=== PATIENT | female | born 1950 | race Caucasian/White ===

== ENCOUNTER 2018-10-05 17:31 | Inpatient (IN) ==
[2018-10-06] MEDS ORDERED: *HR* Dextrose 50 % in Water (Syg) 50 ML SYRINGE IVP PRN (18:03)
[2018-10-06] MEDS ORDERED: D5% in Water 1,000 ML IVC PRN (18:03)
[2018-10-06] MEDS ORDERED: Dextrose Gel 15 GM/37.5 ML TUBE PO PRN ×2 (18:03)
[2018-10-06] MEDS ORDERED: Mag Hydrox/Al Hydrox/Simeth 30 ML UDC PO PRN (18:03)
[2018-10-06] MEDS ORDERED: Dextrose 4 GM Chewable Tablets PO PRN ×2 (18:03)
[2018-10-06] MEDS ORDERED: Acetaminophen 325 MG TABLET PO PRN (18:03)
[2018-10-06] MEDS ORDERED: Ondansetron ODT 4 MG TAB.RAPDIS SL PRN (18:08)
[2018-10-06] MEDS: *HR* OxyCODONE Immed Rel 5 MG TABLET PO PRN ×2 (18:57→22:35)
[2018-10-06] MEDS: Insulin LISPRO 300 UNITS/3 ML VIAL SQ SCH (22:06)
[2018-10-06] MEDS: Apixaban 5 MG TABLET PO SCH (22:32)
[2018-10-06] MEDS: Gabapentin 300 MG CAPSULE PO SCH (22:33)
[2018-10-06] MEDS: Sennosides/Docusate Sodium TABLET PO SCH (22:34)
[2018-10-07] MEDS: *HR* OxyCODONE Immed Rel 5 MG TABLET PO PRN ×3 (03:40→22:10)
[2018-10-07 05:36] LABS: Basophils % 0.5 %; Eosinophils # 0.3 K/mcL (0.0-0.6); Eosinophils % 3.5 %; Hematocrit 33.8 % (35.3-44.9); Hemoglobin 11.1 g/dL (11.5-15.4); Immature Granulocytes % 0.3 % (0-4); Lymphocytes % 12.7 %; Mean Corpuscular HGB Conc 32.8 g/dL (31.6-35.5); Mean Corpuscular Hemoglobin 30.2 pg (28.0-33.3); Mean Corpuscular Volume 91.8 fL (83.0-100.0); Monocytes # 0.8 K/mcL (0.0-1.3); Monocytes % 10.3 %; Neutrophils # 5.8 K/mcL (1.6-8.9); Platelet Count 230 K/mcL (140-400); Red Blood Count 3.68 M/mcL (3.82-4.97); Red Cell Distribution Width 13.2 % (11.5-14.5); Segmented Neutrophils % 72.7 %
[2018-10-07 06:00] LABS: Alanine Aminotransferase 17 Units/L (7-52); Albumin 3.4 g/dL (3.5-5.7); Albumin/Globulin Ratio 1.1 (1.1-2.2); Alkaline Phosphatase 85 Units/L (34-104); Aspartate Amino Transferase 28 Units/L (13-39); BUN/Creatinine Ratio 27 (6-26); Bilirubin,Total 0.7 mg/dL (0.3-1.0); Blood Urea Nitrogen 15 mg/dL (8-23); Carbon Dioxide 27 mEq/L (23-29); Chloride 104 mEq/L (98-107); Globulin 3.2 g/dL (2.4-3.5); Glucose 140 mg/dL (70-105); Osmolality,Calculated 287 (280-300); Potassium 3.6 mEq/L (3.5-5.1); Sodium 137 mEq/L (136-145); Total Protein 6.6 g/dL (6.4-8.9); eGFR For Non-African Americans > 60 (> 60)
[2018-10-07] MEDS ORDERED: tiZANidine 4 MG TABLET PO ONE (09:13)
[2018-10-07] MEDS: Insulin LISPRO 300 UNITS/3 ML VIAL SQ SCH ×4 (09:17→20:52)
[2018-10-07] MEDS: Apixaban 5 MG TABLET PO SCH ×2 (09:20→20:12)
[2018-10-07] MEDS: Gabapentin 300 MG CAPSULE PO SCH ×3 (09:20→20:12)
[2018-10-07] MEDS: Insulin DETEMIR 100 UNIT/ML X5UNITS SQ SCH (09:20)
[2018-10-07] MEDS: Sennosides/Docusate Sodium TABLET PO SCH ×2 (09:21→20:11)
[2018-10-07] MEDS: tiZANidine 4 MG TABLET PO PRN ×2 (10:01→16:49)
--- NOTE | 2018-10-07 10:49 | Internal Med History&Physical ---
Addendum entered and electronically signed by Umesh Mar MD 10/07/18 11:40: I have personally performed a face to face evaluation on this patient. I have r eviewed and agree with the care plan. History and Exam by me shows: Patient is a 67-year-old female who has had multiple vascular procedures, 45, until yesterday when she had a left [id number] amputation. She is having significant pain and feels this is muscle spasm. She does not like to have the extremity stump touched. She notes no breathing problems or chest pains, postoperatively. She states it is been 3 or so days since her last bowel movement. Otherwise, she just has pain. Past medical history was reviewed with her, as listed below. She had a remote heart attack but no recent chest pain or breathing problems. She smoked approximately 70-80 pack years but stopped 07/15/2018. She lives alone and has a daughter that lives about 10 minutes away. She wears dentures but does not have with her. Patient has no complaint of chest discomfort, dyspnea, orthopnea, breathing problems, palpitations, nausea or vomiting, constipation or diarrhea, other changes in bowel habits, heartburn, difficulty with urination, kidney problems or kidney stones, fevers chills or sweats, rash or itching, seizures, headache or lightheadedness, heat or cold intolerance, blood problems or anemia, or other new complaints, except as mentioned above. Review of systems is otherwise negative. Examination: (Except as mentioned above): General: In no apparent distress, alert and oriented 3. She has pain and shaking, throughout the exam. Head: Atraumatic and normocephalic. Eyes: Extraocular muscles are intact, pupils equal round and reactive to light and accommodation. Sclerae anicteric. Ears: External ears are normal to inspection and hearing is grossly normal. Nose: Patent without lesion noted. Mouth: No intraoral lesions seen. She is edentulous Neck: Supple with trachea midline. There is no thyromegaly or adenopathy and carotids are 2+ without bruit heard. Respiratory: No use of accessory muscles. Lungs are clear throughout. Normal airflow. Cardiovascular: Regular rate and rhythm without murmur appreciated. Abdomen: Bowel sounds are normal. No hepatosplenomegaly masses or tenderness. Obese and therefore difficult to palpate deeply. Extremities: No cyanosis clubbing or edema. She is status post AKA on the left and this is with an intact wound. There is pronounced tenderness and she is obviously in pain. Neurological: A and O 3. Cranial nerves II through XII are intact. No focal deficits and no abnormal movements or postures. Skin: Warm and non-diaphoretic with no lesions noted. Breasts, pelvic and rectal: Not examined. Will try to optimize narcotics and avoid as possible, wean when possible. Muscle relaxants have been begun and will be increased as needed. Original Note: Date of Encounter: 10/07/18 Time of Encounter: 10:45 Assessment and Plan (1) S/P AKA (above knee amputation) Current visit: Yes Status: Acute Patient with history of severe peripheral vascular disease. Recent history of failed revascularization of left leg, resulting in a left AKA. Patient anita crain complaining of moderate to severe pain to the left stump, which she describes as a muscle spasm type pain. Patient will be medicated with recurrent oxycodone and will add Zanaflex for muscle spasm relief. Patient with history of difficulty managing her pain at previous facility. Physical therapy evaluation pending. We will continue with current plan of care. Qualifiers: Laterality: left Qualified Code(s): Z89.612 - Acquired absence of left leg above knee (2) Peripheral vascular disease Current visit: Yes Status: Chronic No acute issues. Patient's right leg is warm to touch with normal coloration. Currently unable to palpate pedal pulses. Capillary refill does show less than 3 seconds. No complaints of claudication to right leg. Patient with recent left AKA due to failed revascularization. Patient has had multiple revascularization procedures performed on the right leg. (3) Hypertension Current visit: Yes Status: Chronic Vital signs currently are stable. We will continue with current medications. Qualifiers: Hypertension type: essential hypertension Qualified Code(s): I10 - Essential (primary) hypertension (4) CAD (coronary artery disease) Current visit: Yes Status: Chronic No acute issues. Patient denies any chest discomforts or palpitations. Patient to continue on current medications Qualifiers: Coronary Disease-Associated Artery/Lesion type: unspecified vessel or lesion type [place] vs. transplanted heart: unspecified whether [place] or transplanted heart Associated angina: angina presence unspecified Qualified Code(s): I25.10 - Atherosclerotic heart disease of [place] coronary artery without angina pectoris Internal Medicine - H&P: HPI Chief complaint: Left AKA Admitted From: Hospital to Hospital Transfer Plans for Post Hospital Care: Home History of present illness: Ms. Abdi is a 67 year old female, who was admitted to this facility has a transfer from an [facility]. Patient is to have physical therapy due to her generalized weakness secondary to severe peripheral vascular disease and a left AKA. Patient with history of severe peripheral vascular disease with multiple surgeries and interventions to bilateral lower extremities. Patient had a recent revascularization of left leg which had failed and patient required a left AKA during this last hospitalization. Patient complains of severe pain to her left leg due to muscle spasms and appears very restless. Patient states that she had issues with pain management during her hospitalization. Patient denies any shortness of breath, chest discomfort or palpitations. Left AKA surgical wound appears with dressing dry and intact. No edema or ecchymosis noted. Patient with a history of hypertension, CAD, DVT and a CVA. No residual noted to neurological exam. Past Med Surg Social Fam HX - Past Medical History Medical history: CVA, DVT, hypertension, myocardial infarction, other Additional medical history: arterial insufficiency Psychiatric history: no psych history - Past Surgical History Surgical History: angioplasty/stent, vascular surgery Additional surgical history: aterial bypass, stents LEs. - Social History Smoking Status: Former smoker Smokeless Tobacco Status: No Alcohol use: occasionally Drug use: none Internal Medicine - H&P: Meds Atorvastatin [Lipitor] 80 mg PO HS 03/07/18 [History] BuPROPion [Wellbutrin] 100 mg PO BID 03/07/18 [History] Lisinopril [Zestril] 10 mg PO DAILY 03/07/18 [History] PARoxetine HCl [Paroxetine HCl] 40 mg PO HS 03/07/18 [History] Trazodone HCl 100 mg PO HS PRN 03/07/18 [History] Clopidogrel Bisulfate [Plavix] 75 mg PO DAILY 07/14/18 [History] Apixaban [Eliquis] 5 mg PO BID 10/06/18 [History] Dapagliflozin Propanediol [Farxiga] 10 mg PO DAILY 10/06/18 [History] Gabapentin [Neurontin] 300 mg PO TID 10/06/18 [History] Insulin Glargine [Lantus] 5 units SQ QAM 10/06/18 [History] Ondansetron ODT [Zofran ODT] 4 mg SL Q6H PRN 10/06/18 [History] Allergy/AdvReac Type Severity Reaction Status Date / Time Penicillins [PCN] Allergy Anaphylaxis Verified 03/07/18 04:50 All Systems PM: A 10-system review of systems was performed and is negative for pertinent findings except as documented above in the HPI. - Constitutional Constitutional: as per HPI, no chills, no fever(s), no night sweats - EENT Eyes: as per HPI, no change in vision, no discharge, no pain, no photophobia Ears: no ear discharge, no ear pain, no tinnitus Nose, mouth and throat: no dysphagia, no nasal discharge, no neck pain, no sore throat - Cardiovascular Cardiovascular ROS IM: as per HPI, no chest pain, no diaphoresis, no dyspnea, no lightheadedness, no palpitations, no syncope - Respiratory Respiratory: as per HPI, no cough, no dyspnea, no wheezing, no excessive phlegm production - Gastrointestinal Gastrointestinal: as per HPI, no abdominal pain, no diarrhea, no hematemesis, no hematochezia, no melena, no nausea, no vomiting - Genitourinary Genitourinary: no change in urinary stream, no dysuria, no flank pain, no hematuria - Musculoskeletal Musculoskeletal ROS IM: as per HPI, no numbness, no tingling - Integumentary Integumentary IM: as per HPI, no rash, no unusual bruising - Neurological Neurological ROS: as per HPI, no confusion, no convulsions, no focal weakness, no numbness, no tingling, no tremor(s) - Hematologic/Lymphatic Hematologic/Lymphatic: no easy bruising - Constitutional Vitals: Temp Pulse Resp BP Pulse Ox 98.7 F 79 16 158/72 95 10/07/18 06:48 10/07/18 06:48 10/07/18 06:48 10/07/18 06:48 10/07/18 06:48 General appearance: Present: A&O X 3, pleasant Exam: Patient currently appears restless due to her muscle spasms of the left leg. - Head Head exam: Present: atraumatic, normocephalic - Eye Eye exam: Present: PERRL, conjuntiva pink, sclera anicteric Pupils: Present: PERRL - Neck Neck exam general surgery: Present: supple, trachea midline. Absent: lymphadenopathy - Respiratory Respiratory exam: Present: CTAB. Absent: accessory muscle use, rales, rhonchi, wheezes Additional comments: Lungs are clear throughout upper quick with diminished bases. Respiratory effort appears relaxed. No productive cough. - Cardiovascular Cardiovascular exam: Present: RRR, +S1, +S2. Absent: diastolic murmur, gallop, rubs, systolic murmur - GI/Abdominal GI/Abdominal exam: Present: normal bowel sounds, soft, no peritoneal signs. Ab sent: distended, tenderness - Extremities Exam Extremities exam: Present: normal capillary refill, warm, radial pulses palpable and symmetrical. Absent: calf tenderness, cyanotic, pedal edema Additional comments: Left AKA with dressing that is dry and intact. No edema or ecchymosis noted surrounding surgical site. Right leg remains warm to touch. Currently unable to palpate PT/DP pulses on right foot. - Neurological Exam Neurological exam: Present: CN II-XII intact, oriented X3, no focal deficits. Absent: pronater drift, facial droop, speech deficit - Skin Skin exam: Present: dry, intact Internal Med - H&P Results - Labs CBC & Chem 7: 10/07/18 04:24 10/07/18 04:24 Labs: Short CBC 10/07/18 Range/Units 04:24 WBC 7.9 (4.3-11.1) K/mcL Hgb 11.1 L (11.5-15.4) g/dL Hct 33.8 L (35.3-44.9) % Plt Count 230 (140-400) K/mcL Neutrophils # 5.8 (1.6-8.9) K/mcL BMP 10/07/18 04:24 Sodium 137 Potassium 3.6 Chloride 104 Carbon Dioxide 27 BUN 15 Creatinine 0.56 L Glucose 140 H Calcium 9.0 Liver Function 10/07/18 Range/Units 04:24 Total Bilirubin 0.7 (0.3-1.0) mg/dL AST 28 (13-39) Units/L ALT 17 (7-52) Units/L Alkaline Phosphatase 85 (34-104) Units/L Albumin 3.4 L (3.5-5.7) g/dL
[2018-10-08] MEDS: *HR* OxyCODONE Immed Rel 5 MG TABLET PO PRN ×3 (05:10→19:09)
[2018-10-08] MEDS: Apixaban 5 MG TABLET PO SCH ×2 (08:01→20:27)
[2018-10-08] MEDS: Gabapentin 300 MG CAPSULE PO SCH ×3 (08:01→20:27)
[2018-10-08] MEDS: Sennosides/Docusate Sodium TABLET PO SCH ×2 (08:02→20:28)
[2018-10-08] MEDS: Insulin LISPRO 300 UNITS/3 ML VIAL SQ SCH ×4 (11:08→21:08)
[2018-10-08] MEDS: Insulin DETEMIR 100 UNIT/ML X5UNITS SQ SCH (11:10)
--- NOTE | 2018-10-08 12:09 | Internal Med Progress Note ---
Date of Encounter: 10/08/18 Time of Encounter: 12:07 - Assessment and plan (1) S/P AKA (above knee amputation) Current Visit: Yes Status: Acute Assessment and plan: Pain is better controlled. Will continue on with muscle relaxants and follow. Patient apparently thought she was going home, earlier today. Qualifiers: Laterality: left Qualified Code(s): Z89.612 - Acquired absence of left leg above knee (2) Peripheral vascular disease Current Visit: Yes Status: Chronic Assessment and plan: No others current signs of breakdown. (3) Hypertension Current Visit: Yes Status: Chronic Assessment and plan: Currently controlled. Qualifiers: Hypertension type: essential hypertension Qualified Code(s): I10 - Essential (primary) hypertension (4) CAD (coronary artery disease) Current Visit: Yes Status: Chronic Assessment and plan: Clinically stable without signs or symptoms. Qualifiers: Coronary Disease-Associated Artery/Lesion type: unspecified vessel or lesion type [place] vs. transplanted heart: unspecified whether [place] or transplanted heart Associated angina: angina presence unspecified Qualified Code(s): I2 5.10 - Atherosclerotic heart disease of [place] coronary artery without angina pectoris - Subjective Interval history: Patient is markedly better than yesterday. Her spasm has nearly resolved and her pain control is much better. She has no acute issues. She is pleased with her progress. Patient has no complaint of chest discomfort, dyspnea, orthopnea, palpitations, nausea or vomiting, constipation or diarrhea, other changes in bowel habits, d ifficulty with urination, rash or itching, or other new complaints, except as mentioned above. Review of systems is otherwise negative. I discussed management of her care with nursing staff. - Constitutional Vitals: Temp Pulse Resp BP Pulse Ox 98.2 F 70 16 161/73 96 10/08/18 07:00 10/08/18 07:00 10/08/18 07:00 10/08/18 07:00 10/08/18 07:00 Exam: Examination: (Except as mentioned above): General: In no apparent distress. Alert and oriented 3. Nondiaphoretic. Head: Atraumatic and normocephalic. Respiratory: No use of accessory muscles. Lungs are clear throughout. Normal airflow. Cardiovascular: Regular rate and rhythm without murmur appreciated. Abdomen: Bowel sounds are normal. No hepatosplenomegaly mass or tenderness appreciated. Obese and therefore difficult to palpate deeply. Extremities: No cyanosis clubbing or edema. Status post left AKA. Skin: Warm and non-diaphoretic with no new lesions noted. Internal Medicine: Result - Labs CBC & Chem 7: 10/07/18 04:24 10/07/18 04:24 Consult Discharge Plan - Plan Referrals: NONE,PCP [Primary Care Provider] -
[2018-10-08] MEDS: tiZANidine 4 MG TABLET PO PRN ×2 (14:07→20:28)
[2018-10-08] MEDS: traZODone 50 MG TABLET PO PRN (20:28)
[2018-10-09] MEDS: *HR* OxyCODONE Immed Rel 5 MG TABLET PO PRN ×3 (06:07→20:49)
[2018-10-09] MEDS: Apixaban 5 MG TABLET PO SCH ×2 (08:30→20:47)
[2018-10-09] MEDS: Gabapentin 300 MG CAPSULE PO SCH ×3 (08:30→20:48)
[2018-10-09] MEDS: tiZANidine 4 MG TABLET PO PRN (08:30)
[2018-10-09] MEDS: Insulin LISPRO 300 UNITS/3 ML VIAL SQ SCH ×4 (08:30→20:47)
[2018-10-09] MEDS: Insulin DETEMIR 100 UNIT/ML X5UNITS SQ SCH (08:31)
[2018-10-09] MEDS: Sennosides/Docusate Sodium TABLET PO SCH ×2 (08:31→20:48)
[2018-10-09] MEDS ORDERED: cloNIDine HCl 0.1 MG TABLET PO PRN (14:06)
--- NOTE | 2018-10-09 17:25 | Internal Med Progress Note ---
Date of Encounter: 10/09/18 Time of Encounter: 15:00 - Assessment and plan (1) S/P AKA (above knee amputation) Current Visit: Yes Status: Acute Assessment and plan: She is continuing to do well and we will follow. Qualifiers: Laterality: left Qualified Code(s): Z89.612 - Acquired absence of left leg above knee (2) Peripheral vascular disease Current Visit: Yes Status: Chronic Assessment and plan: Clinically stable without signs of breakdown. (3) Hypertension Current Visit: Yes Status: Chronic Assessment and plan: Clinically controlled. Qualifiers: Hypertension type: essential hypertension Qualified Code(s): I10 - Es sential (primary) hypertension (4) CAD (coronary artery disease) Current Visit: Yes Status: Chronic Assessment and plan: No signs or symptoms. Qualifiers: Coronary Disease-Associated Artery/Lesion type: unspecified vessel or lesion type [place] vs. transplanted heart: unspecified whether [place] or transplanted heart Associated angina: angina presence unspecified Qualified Code(s): I25.10 - Atherosclerotic heart disease of [place] coronary artery without angina pectoris - Subjective Interval history: Patient feels well without acute complaints. She is pleased that she has improved from pain standpoint. However, she has frequent shooting pains that are very transient in her left leg. I talked about phantom pain and that we would follow. Patient has no complaint of chest discomfort, dyspnea, orthopnea, palpitations, nausea or vomiting, constipation or diarrhea, other changes in bowel habits, difficulty with urination, rash or itching, or other new complaints, except as mentioned above. Review of systems is otherwise negative. I discussed management of her care with nursing staff. - Constitutional Vitals: Temp Pulse Resp BP Pulse Ox 98.3 F 75 16 165/79 96 10/09/18 07:00 10/09/18 07:00 10/09/18 07:00 10/09/18 07:00 10/09/18 07:00 Exam: Examination: (Except as mentioned above): General: In no apparent distress. Alert and oriented 3. Nondiaphoretic. Head: Atraumatic and normocephalic. Respiratory: No use of accessory muscles. Lungs are clear throughout. Normal airflow. Cardiovascular: Regular rate and rhythm without murmur appreciated. Abdomen: Bowel sounds are normal. No hepatosplenomegaly mass or tenderness appreciated. Obese and therefore difficult to palpate deeply. Extremities: No cyanosis clubbing or edema. Status post AKA, on the left. Skin: Warm and non-diaphoretic with no new lesions noted. Internal Medicine: Result - Labs CBC & Chem 7: 10/07/18 04:24 10/07/18 04:24 Consult Discharge Plan - Plan Referrals: NONE,PCP [Primary Care Provider] -
[2018-10-09] MEDS: traZODone 50 MG TABLET PO PRN (20:49)
[2018-10-10] MEDS: *HR* OxyCODONE Immed Rel 5 MG TABLET PO PRN ×3 (05:04→21:09)
[2018-10-10] MEDS: Gabapentin 300 MG CAPSULE PO SCH ×3 (09:29→21:10)
[2018-10-10] MEDS: Insulin LISPRO 300 UNITS/3 ML VIAL SQ SCH ×4 (09:29→21:07)
[2018-10-10] MEDS: Sennosides/Docusate Sodium TABLET PO SCH ×2 (09:29→21:07)
[2018-10-10] MEDS: Apixaban 5 MG TABLET PO SCH ×2 (09:29→21:09)
[2018-10-10] MEDS: Insulin DETEMIR 100 UNIT/ML X5UNITS SQ SCH (09:36)
[2018-10-10] MEDS: tiZANidine 4 MG TABLET PO PRN (09:44)
--- NOTE | 2018-10-10 11:33 | Internal Med Progress Note ---
Addendum entered and electronically signed by Umesh Mar MD 10/10/18 14:30: I have personally performed a face to face evaluation on this patient. I have r eviewed and agree with the care plan. History and Exam by me shows: Patient is experiencing occasional brief pains in her leg. This is consistent with phantom pain and we discussed. Generally, it is improving over the last couple of days. She denies other issues or wonders when she can get to go home. I explained to her the most dependent she does with transfers, safety, etc. For now, she is to be discussed again in a couple of days, it therapy team meeting. Discussed care with other providers and/or nursing. Patient has no complaint of chest discomfort, dyspnea, orthopnea, palpitations, nausea or vomiting, constipation or diarrhea, other changes in bowel habits, difficulty with urination, rash or itching, or other new complaints, except as mentioned above. Review of systems is otherwise negative. Examination: (Except as mentioned above): General: In no apparent distress. Alert and oriented 3. Nondiaphoretic. Head: Atraumatic and normocephalic. Respiratory: No use of accessory muscles. Lungs are clear throughout. Normal airflow. Cardiovascular: Regular rate and rhythm without murmur appreciated. Abdomen: Bowel sounds are normal. No hepatosplenomegaly mass or tenderness appreciated. Obese and therefore difficult to palpate deeply. Extremities: No cyanosis clubbing or edema. She is status post AKA at the left and dressing is dry and intact. Skin: Warm and non-diaphoretic with no new lesions noted. Original Note: Date of Encounter: 10/10/18 Time of Encounter: 11:31 - Assessment and plan (1) S/P AKA (above knee amputation) Current Visit: Yes Status: Acute Assessment and plan: continue PT and OT. will follow progress. pain controlled with oxycodone and gabapentin. f/u with surgeon as scheduled. Qualifiers: Laterality: left Qualified Code(s): Z89.612 - Acquired absence of left leg above knee (2) Peripheral vascular disease Current Visit: Yes Status: Chronic Assessment and plan: s/p Left AKA (3) Hypertension Current Visit: Yes Status: Chronic Assessment and plan: controlled with current meds. monitor BP Qualifiers: Hypertension type: essential hypertension Qualified Code(s): I10 - Essential (primary) hypertension (4) CAD (coronary artery disease) Current Visit: Yes Status: Chronic Assessment and plan: stable. denies chest pain. continue current meds. Qualifiers: Coronary Disease-Associated Artery/Lesion type: unspecified vessel or lesion type [place] vs. transplanted heart: unspecified whether [place] or transplanted heart Associated angina: angina presence unspecified Qualified Code(s): I25.10 - Atherosclerotic heart disease of [place] coronary artery without angina pectoris (5) Diabetes type 2, controlled Current Visit: Yes Status: Acute Assessment and plan: continue insulin per SS. monitor FSBS. Qualifiers: Diabetes mellitus care home insulin use: with moth exterminator use Diabetes mellitus complication status: with unspecified complications Qualified Code(s): E11.8 - Type 2 diabetes mellitus with unspecified complications; Z79.4 - intermediate accountant (current) use of insulin - Time Spent With Patient less than 15 minutes - Subjective Interval history: s/p L AKA. states occasional pain off and on but controlled with meds. participating with therapy. denies fever, chills, NVD, SOB or chest pain. bowels moving as normal. maintaining appetite and hydration. - Constitutional Vitals: Temp Pulse Resp BP Pulse Ox 98.2 F 68 14 137/75 95 10/10/18 07:00 10/10/18 07:00 10/10/18 07:00 10/10/18 07:00 10/10/18 07:00 General appearance: Present: A&O X 3, pleasant, no acute distress - Head Head exam: Present: atraumatic, normocephalic - Eye Eye exam: Present: PERRL, conjuntiva pink, sclera anicteric Pupils: Present: PERRL - Neck Neck exam general surgery: Present: supple, trachea midline. Absent: lymphadenopathy - Respiratory Respiratory exam: Present: CTAB. Absent: accessory muscle use, rales, rhonchi, wheezes - Cardiovascular Cardiovascular exam: Present: RRR, +S1, +S2. Absent: diastolic murmur, gallop, rubs, systolic murmur - GI/Abdominal GI/Abdominal exam: Present: normal bowel sounds, soft, no peritoneal signs. Absent: distended, tenderness - Extremities Exam Extremities exam: Present: warm, radial pulses palpable and symmetrical. Absent: calf tenderness, cyanotic, pedal edema Additional comments: left AKA, incision wrapped, dry and intact. - Neurological Exam Neurological exam: Present: CN II-XII intact, oriented X3, no focal deficits. Absent: pronater drift, facial droop, speech deficit - Skin Skin exam: Present: dry, intact Internal Medicine: Result - Labs CBC & Chem 7: 10/07/18 04:24 10/07/18 04:24 Consult Discharge Plan - Plan Referrals: NONE,PCP [Primary Care Provider] -
[2018-10-11] MEDS: *HR* OxyCODONE Immed Rel 5 MG TABLET PO PRN ×4 (03:02→22:40)
[2018-10-11] MEDS: Apixaban 5 MG TABLET PO SCH ×2 (07:49→20:55)
[2018-10-11] MEDS: Gabapentin 300 MG CAPSULE PO SCH ×3 (07:49→20:56)
[2018-10-11] MEDS: Sennosides/Docusate Sodium TABLET PO SCH ×2 (07:49→20:57)
[2018-10-11] MEDS: tiZANidine 4 MG TABLET PO PRN (07:49)
--- NOTE | 2018-10-11 08:30 | Internal Med Progress Note ---
Addendum entered and electronically signed by Umesh Mar MD 10/11/18 13:59: I have personally performed a face to face evaluation on this patient. I have r eviewed and agree with the care plan. History and Exam by me shows: Patient is still having pains at the left groin. We discussed this and we will try scheduling her ties tizanidine for a day or 2. If not effective, will consider increasing her gabapentin. Bowels are moving okay and she has no other acute issues. Discussed care with other providers and/or nursing. Patient has no complaint of chest discomfort, dyspnea, orthopnea, palpitations, nausea or vomiting, constipation or diarrhea, other changes in bowel habits, difficulty with urination, rash or itching, or other new complaints, except as mentioned above. Review of systems is otherwise negative. Examination: (Except as mentioned above): General: In no apparent distress. Alert and oriented 3. Nondiaphoretic. Head: Atraumatic and normocephalic. Respiratory: No use of accessory muscles. Lungs are clear throughout. Normal airflow. Cardiovascular: Regular rate and rhythm without murmur appreciated. Abdomen: Bowel sounds are normal. No hepatosplenomegaly mass or tenderness appreciated. Obese and therefore difficult to palpate deeply. Patient is examined upright at bedside and this also limits exam. Extremities: No cyanosis clubbing or edema. Status post AKA. Skin: Warm and non-diaphoretic with no new lesions noted. Original Note: Date of Encounter: 10/11/18 Time of Encounter: 08:28 - Assessment and plan (1) S/P AKA (above knee amputation) Current Visit: Yes Status: Acute Assessment and plan: continue PT and OT. will follow progress. pain controlled with oxycodone and gabapentin. f/u with surgeon as scheduled. Qualifiers: Laterality: left Qualified Code(s): Z89.612 - Acquired absence of left leg above knee (2) Peripheral vascular disease Current Visit: Yes Status: Chronic Assessment and plan: s/p Left AKA (3) Hypertension Current Visit: Yes Status: Chronic Assessment and plan: controlled with current meds. monitor BP Qualifiers: Hypertension type: essential hypertension Qualified Code(s): I10 - Essential (primary) hypertension (4) CAD (coronary artery disease) Current Visit: Yes Status: Chronic Assessment and plan: stable. denies chest pain. continue current meds. Qualifiers: Coronary Disease-Associated Artery/Lesion type: unspecified vessel or lesion type [place] vs. transplanted heart: unspecified whether [place] or transplanted heart Associated angina: angina presence unspecified Qualified Code(s): I25.10 - Atherosclerotic heart disease of [place] coronary artery without angina pectoris (5) Diabetes type 2, controlled Current Visit: Yes Status: Acute Assessment and plan: continue insulin per SS. monitor FSBS. Qualifiers: Diabetes mellitus intermediate designer insulin use: with intermediate designer use Diabetes mellitus complication status: with unspecified complications Qualified Code(s): E11.8 - Type 2 diabetes mellitus with unspecified complications; Z79.4 - USP (current) use of insulin - Time Spent With Patient less than 15 minutes - Subjective Interval history: s/p L AKA. States she did not sleep well last night due to increased pain in left anterior upper thigh. participating with therapy. denies fever, chills, NVD, SOB or chest pain. bowels moving as normal. maintaining appetite and hydration. - Constitutional Vitals: Temp Pulse Resp BP Pulse Ox 98.4 F 70 16 146/75 98 10/10/18 19:15 10/10/18 19:15 10/10/18 19:15 10/10/18 19:15 10/10/18 19:15 General appearance: Present: cooperative, A&O X 3, pleasant, no acute distress, answers questions appropriately - Head Head exam: Present: atraumatic, normocephalic - Eye Eye exam: Present: PERRL, conjuntiva pink, sclera anicteric Pupils: Present: PERRL - Neck Neck exam general surgery: Present: supple, trachea midline. Absent: lymphadenopathy - Respiratory Respiratory exam: Present: CTAB. Absent: accessory muscle use, rales, rhonchi, wheezes - Cardiovascular Cardiovascular exam: Present: RRR, +S1, +S2. Absent: diastolic murmur, gallop, rubs, systolic murmur - GI/Abdominal GI/Abdominal exam: Present: normal bowel sounds, soft, no peritoneal signs. Absent: distended, tenderness - Extremities Exam Extremities exam: Present: warm, radial pulses palpable and symmetrical. Absent: calf tenderness, cyanotic, pedal edema Additional comments: Status post left A.k.a. - Neurological Exam Neurological exam: Present: CN II-XII intact, oriented X3, no focal deficits. Absent: pronater drift, facial droop, speech deficit - Skin Skin exam: Present: dry, intact Additional comments: Dressing to left AKA dry and intact. Business Initiatives Manager in place Internal Medicine: Result - Labs CBC & Chem 7: 10/07/18 04:24 10/07/18 04:24 Consult Discharge Plan - Plan Referrals: NONE,PCP [Primary Care Provider] -
[2018-10-11] MEDS: Insulin LISPRO 300 UNITS/3 ML VIAL SQ SCH ×4 (08:56→20:58)
[2018-10-11] MEDS: Insulin DETEMIR 100 UNIT/ML X5UNITS SQ SCH (09:37)
[2018-10-11] MEDS: tiZANidine 4 MG TABLET PO SCH ×2 (16:06→20:55)
[2018-10-11] MEDS: traZODone 50 MG TABLET PO PRN (22:40)
[2018-10-12] MEDS: tiZANidine 4 MG TABLET PO SCH ×4 (05:49→19:50)
[2018-10-12] MEDS: Apixaban 5 MG TABLET PO SCH ×2 (08:49→19:50)
[2018-10-12] MEDS: *HR* OxyCODONE Immed Rel 5 MG TABLET PO PRN ×4 (08:49→22:40)
[2018-10-12] MEDS: Gabapentin 300 MG CAPSULE PO SCH ×3 (08:49→19:50)
[2018-10-12] MEDS: Sennosides/Docusate Sodium TABLET PO SCH ×2 (08:50→19:49)
[2018-10-12] MEDS: Insulin LISPRO 300 UNITS/3 ML VIAL SQ SCH ×4 (08:52→19:54)
[2018-10-12] MEDS: Insulin DETEMIR 100 UNIT/ML X5UNITS SQ SCH (09:15)
--- NOTE | 2018-10-12 09:22 | Internal Med Progress Note ---
Addendum entered and electronically signed by Umesh Mar MD 10/12/18 14:21: I have personally performed a face to face evaluation on this patient. I have r eviewed and agree with the care plan. History and Exam by me shows: Pain persists. Patient states this is no better than yesterday. However, she is more actively involved with therapies. At some points, she has limiting pain with severe problems and other points during the day, she has no pain at all. We will continue to follow for another day or so and hopefully will avoid increasing the gabapentin. Discussed care with other providers and/or nursing. Patient has no complaint of chest discomfort, dyspnea, orthopnea, palpitations, nausea or vomiting, constipation or diarrhea, other changes in bowel habits, difficulty with urination, rash or itching, or other new complaints, except as mentioned above. Review of systems is otherwise negative. Examination: (Except as mentioned above): General: In no apparent distress. Alert and oriented 3. Nondiaphoretic. Head: Atraumatic and normocephalic. Respiratory: No use of accessory muscles. Lungs are clear throughout. Normal a irflow. Cardiovascular: Regular rate and rhythm without murmur appreciated. Abdomen: Bowel sounds are normal. No hepatosplenomegaly mass or tenderness appreciated. Obese and therefore difficult to palpate deeply. Extremities: No cyanosis clubbing or edema. Status post left AKA. Skin: Warm and non-diaphoretic with no new lesions noted. Original Note: Date of Encounter: 10/12/18 Time of Encounter: 09:19 - Assessment and plan (1) S/P AKA (above knee amputation) Current Visit: Yes Status: Acute Assessment and plan: Patient continues with muscle spasm type pain which has improved somewhat since making her Zanaflex routinely scheduled. Patient continues to experience increased muscle spasm during therapy. Surgical wound appears healthy with dressing dry and intact. We will review patient's current pain medications for further titration. Patient is participating well with physical therapy and progressing. Qualifiers: Laterality: left Qualified Code(s): Z89.612 - Acquired absence of left leg above knee (2) Peripheral vascular disease Current Visit: Yes Status: Chronic Assessment and plan: No acute issues. Patient's right leg remains warm although unable to palpate distal pedal pulses. Capillary refill less than 3 seconds. Patient denies any claudication on right leg. We will continue with current medications. (3) Hypertension Current Visit: Yes Status: Chronic Assessment and plan: Vital signs remained stable. We will continue with current medications. Qualifiers: Hypertension type: essential hypertension Qualified Code(s): I10 - Essential (primary) hypertension (4) CAD (coronary artery disease) Current Visit: Yes Status: Chronic Assessment and plan: No acute issues. Patient denies any chest discomforts or palpitations. We will continue with current medications. Qualifiers: Coronary Disease-Associated Artery/Lesion type: unspecified vessel or lesion type [place] vs. transplanted heart: unspecified whether [place] or transplanted heart Associated angina: angina presence unspecified Qualified Code(s): I25.10 - Atherosclerotic heart disease of [place] coronary artery without angina pectoris - Time Spent With Patient less than 15 minutes - Subjective Interval history: Patient noted to be grimacing intermittently this morning after therapy. Patient states that she continues to have muscle spasms to her left AKA stump, which she states has improved somewhat over the past day since making her Zanaflex routine scheduled. Patient describes her pain as a muscle spasm type pain. States that physical therapy continues well. Denies any constipation. - Constitutional Vitals: Temp Pulse Resp BP Pulse Ox 97.6 F 66 16 133/76 97 10/12/18 06:49 10/12/18 06:49 10/12/18 06:49 10/12/18 06:49 10/12/18 06:49 General appearance: Present: cooperative, A&O X 3, pleasant, no acute distress, answers questions appropriately - Head Head exam: Present: atraumatic, normocephalic - Eye Eye exam: Present: PERRL, conjuntiva pink, sclera anicteric Pupils: Present: PERRL - Neck Neck exam general surgery: Present: supple, trachea midline. Absent: l ymphadenopathy - Respiratory Respiratory exam: Present: CTAB. Absent: accessory muscle use, rales, rhonchi, wheezes Additional comments: Lungs are clear throughout upper quick and diminished bases. Respiratory effort appears relaxed. No productive cough. - Cardiovascular Cardiovascular exam: Present: RRR, +S1, +S2. Absent: diastolic murmur, gallop, rubs, systolic murmur - GI/Abdominal GI/Abdominal exam: Present: normal bowel sounds, soft, no peritoneal signs. Absent: distended, tenderness - Extremities Exam Extremities exam: Present: warm, radial pulses palpable and symmetrical. Absent: calf tenderness, cyanotic, pedal edema Additional comments: Left AKA stump with Hua wrap dressing that is dry and intact. No edema or ecchymosis noted. - Neurological Exam Neurological exam: Present: CN II-XII intact, oriented X3, no focal deficits. Absent: pronater drift, facial droop, speech deficit - Skin Skin exam: Present: dry, intact Internal Medicine: Result - Labs CBC & Chem 7: 10/07/18 04:24 10/07/18 04:24 Consult Discharge Plan - Plan Referrals: NONE,PCP [Primary Care Provider] -
--- NOTE | 2018-10-12 14:06 | Psychological Evaluation ---
Date of Encounter: 10/12/18 Time of Encounter: 10:30 History of Present Illness History of present illness: Ms. Abdi is a 67 year old female who has had multiple vascular procedures. She underwent a left [id number] amputation. She is having significant pain and feels this is muscle spasm. She does not like to have the extremity stump touched. She is here for inpatient rehab. Past Medical History - Psychiatric History Psychiatric history: Reports: no psych history Home Medications and Allergies Atorvastatin [Lipitor] 80 mg PO HS 03/07/18 [History] BuPROPion [Wellbutrin] 100 mg PO BID 03/07/18 [History] Lisinopril [Zestril] 10 mg PO DAILY 03/07/18 [History] PARoxetine HCl [Paroxetine HCl] 40 mg PO HS 03/07/18 [History] Trazodone HCl 100 mg PO HS PRN 03/07/18 [History] Clopidogrel Bisulfate [Plavix] 75 mg PO DAILY 07/14/18 [History] Apixaban [Eliquis] 5 mg PO BID 10/06/18 [History] Dapagliflozin Propanediol [Farxiga] 10 mg PO DAILY 10/06/18 [History] Gabapentin [Neurontin] 300 mg PO TID 10/06/18 [History] Insulin Glargine [Lantus] 5 units SQ QAM 10/06/18 [History] Ondansetron ODT [Zofran ODT] 4 mg SL Q6H PRN 10/06/18 [History] Allergy/AdvReac Type Severity Reaction Status Date / Time Penicillins [PCN] Allergy Anaphylaxis Verified 03/07/18 04:50 Social History - Social History Social History: Lives independently with daughter close by. Very social with neighbors. She has a dog she cares for. Enjoys reading, watching TV, and napping.Went through the 10th grade. DIsabled since 's due to CVA. - Tobacco Use Smoking Status: Former smoker - Alcohol Use Alcohol Use: occasionally - Drug Use Drug Use: none Cognitive/Emotional Assessment - Cognitive Ability Abstract Thinking Ability: No Deficits Noted Attention Span Ability: Capable of Focused Attention, Capable of Sustained Attention Language Function Ability: No Deficits Noted Verbal Communication Ability: Conversational Style Problem Solving Ability: Able To Solve Simple Problems Level of Alertness: Alert Memory Description: Immediate Intact Orientation: Person, Place, Year Ability to Follow Directions: Good Speech Pattern: Normal rate Thought Process: Logical Immediate Recall: Recalls 3 objects/words Additional Findings: Pt able to perform 6 digits forward and 3 backward. Difficulty with spelling WORLD backwards. Counted backwards from 20 by3's. Stated gets a "little confused sometime when tries to think real hard". - Emotional Status Mood Description: Depressed Affect Description: Euthymic/stable Coping Ability: Verbalizes positive coping skills Additional Findings: Stated mood "decent". Pain is controlled with medication currently but still has pain and this frustrates her and causes depression. Assessment & Plan - Diagnosis (1) Adjustment disorder with depressed mood - Prognosis Prognosis: Good - Treatment Plan Treatment Plan/Recommendations: Will follow as needed for adjustment to disability. Meds seem to be effective for managing mood. Procedures - Modality Modality: Psychotherapy 30 minutes - Participants Therapy Participant: Patient - Session Time Session Start Time: 10:30 Session Stop Time: 11:00
[2018-10-13] MEDS: tiZANidine 4 MG TABLET PO SCH ×4 (02:12→20:29)
[2018-10-13 05:21] LABS: Hematocrit 34.3 % (35.3-44.9); Hemoglobin 11.2 g/dL (11.5-15.4); Mean Corpuscular HGB Conc 32.7 g/dL (31.6-35.5); Mean Corpuscular Hemoglobin 30.1 pg (28.0-33.3); Mean Corpuscular Volume 92.2 fL (83.0-100.0); Mean Platelet Volume 8.9 fL (9.4-12.4); Platelet Count 320 K/mcL (140-400); Red Blood Count 3.72 M/mcL (3.82-4.97); Red Cell Distribution Width 13.3 % (11.5-14.5)
[2018-10-13 05:43] LABS: Alanine Aminotransferase 12 Units/L (7-52); Albumin 3.4 g/dL (3.5-5.7); Albumin/Globulin Ratio 1.1 (1.1-2.2); Alkaline Phosphatase 87 Units/L (34-104); Aspartate Amino Transferase 14 Units/L (13-39); BUN/Creatinine Ratio 18 (6-26); Bilirubin,Total 0.4 mg/dL (0.3-1.0); Blood Urea Nitrogen 14 mg/dL (8-23); Calcium 9.3 mg/dL (8.6-10.3); Carbon Dioxide 28 mEq/L (23-29); Chloride 103 mEq/L (98-107); Glucose 195 mg/dL (70-105); Osmolality,Calculated 288 (280-300); Potassium 4.2 mEq/L (3.5-5.1); Sodium 136 mEq/L (136-145); Total Protein 6.4 g/dL (6.4-8.9); eGFR For Non-African Americans > 60 (> 60)
[2018-10-13] MEDS: *HR* OxyCODONE Immed Rel 5 MG TABLET PO PRN ×3 (07:38→17:49)
[2018-10-13] MEDS: Sennosides/Docusate Sodium TABLET PO SCH ×2 (07:38→20:29)
[2018-10-13] MEDS: Apixaban 5 MG TABLET PO SCH ×2 (07:38→20:29)
[2018-10-13] MEDS: Gabapentin 300 MG CAPSULE PO SCH ×2 (07:39→15:56)
[2018-10-13] MEDS: Insulin LISPRO 300 UNITS/3 ML VIAL SQ SCH ×4 (09:06→21:41)
[2018-10-13] MEDS: Insulin DETEMIR 100 UNIT/ML X5UNITS SQ SCH (09:40)
--- NOTE | 2018-10-13 10:18 | Internal Med Progress Note ---
Addendum entered and electronically signed by Umesh Mar MD 10/13/18 12:13: I have personally performed a face to face evaluation on this patient. I have r eviewed and agree with the care plan. History and Exam by me shows: Patient had severe pain upon awakening this morning. However, she had slept through the night without pain medication. She has no bowel or bladder complaints or other acute issues. Discussed care with other providers and/or nursing. Patient has no complaint of chest discomfort, dyspnea, orthopnea, palpitations, nausea or vomiting, constipation or diarrhea, other changes in bowel habits, difficulty with urination, rash or itching, or other new complaints, except as mentioned above. Review of systems is otherwise negative. Examination: (Except as mentioned above): General: In no apparent distress. Alert and oriented 3. Nondiaphoretic. Head: Atraumatic and normocephalic. Respiratory: No use of accessory muscles. Lungs are clear throughout. Normal airflow. Cardiovascular: Regular rate and rhythm without murmur appreciated. Abdomen: Bowel sounds are normal. No hepatosplenomegaly mass or tenderness appreciated. Obese and therefore difficult to palpate deeply. Patient is examined upright in chair and this also limits exam. Extremities: No cyanosis clubbing or edema. Status post left AKA Skin: Warm and non-diaphoretic with no new lesions noted. I agree with the housing installer scheduled narcotic as this may help her be able to participate in therapy. Original Note: Date of Encounter: 10/13/18 Time of Encounter: 10:16 - Assessment and plan (1) S/P AKA (above knee amputation) Current Visit: Yes Status: Acute Assessment and plan: Patient continues with muscle spasm type pain. Nurse reports patient did not take any medication stopped tonight because she was asleep and awakened this mor shari in severe pain, refusing therapy. We will make patient's pain medication a routine dose at 6 AM to avoid pain prior to physical therapy. Patient continues with Zanaflex as a scheduled dose. Surgical wound appears healthy with dressing dry and intact. We will review patient's current pain medications for further titration. Patient is participating well with physical therapy and progressing. Qualifiers: Laterality: left Qualified Code(s): Z89.612 - Acquired absence of left leg above knee (2) Peripheral vascular disease Current Visit: Yes Status: Chronic Assessment and plan: No acute issues. Patient's right leg remains warm although unable to palpate distal pedal pulses. Capillary refill less than 3 seconds. Patient denies any claudication on right leg. We will continue with current medications. (3) Hypertension Current Visit: Yes Status: Chronic Assessment and plan: Vital signs remained stable. We will continue with current medications. Qualifiers: Hypertension type: essential hypertension Qualified Code(s): I10 - Essential (primary) hypertension (4) CAD (coronary artery disease) Current Visit: Yes Status: Chronic Assessment and plan: No acute issues. Patient denies any chest discomforts or palpitations. We will continue with current medications. Qualifiers: Coronary Disease-Associated Artery/Lesion type: unspecified vessel or lesion type [place] vs. transplanted heart: unspecified whether [place] or transplanted heart Associated angina: angina presence unspecified Qualified Code(s): I25.10 - Atherosclerotic heart disease of [place] coronary artery without angina pectoris - Time Spent With Patient less than 15 minutes - Subjective Interval history: Patient noted to be grimacing intermittently this morning after therapy. Patient states that she continues to have muscle spasms to her left AKA stump. Patient describes her pain as a muscle spasm type pain. Nursing reports patient has refused physical therapy this morning due to pain. Nursing reports patient has not taken a pain medication throughout the night and slept, but when she awakens in the morning she is in moderate pain. - Constitutional Vitals: Temp Pulse Resp BP Pulse Ox 98.1 F 74 16 155/75 100 10/13/18 06:52 10/13/18 06:52 10/13/18 06:52 10/13/18 06:52 10/13/18 06:52 General appearance: Present: cooperative, A&O X 3, pleasant, no acute distress, answers questions appropriately - Head Head exam: Present: atraumatic, normocephalic - Eye Eye exam: Present: PERRL, conjuntiva pink, sclera anicteric Pupils: Present: PERRL - Neck Neck exam general surgery: Present: supple, trachea midline. Absent: lymphadenopathy - Respiratory Respiratory exam: Present: CTAB. Absent: accessory muscle use, rales, rhonchi, wheezes - Cardiovascular Cardiovascular exam: Present: RRR, +S1, +S2. Absent: diastolic murmur, gallop, rubs, systolic murmur - GI/Abdominal GI/Abdominal exam: Present: normal bowel sounds, soft, no peritoneal signs. Absent: distended, tenderness - Extremities Exam Extremities exam: Present: warm, radial pulses palpable and symmetrical. Absent: calf tenderness, cyanotic, pedal edema Additional comments: Left AKA stump dressing is dry and intact. Slight tenderness to stump area during palpation. - Neurological Exam Neurological exam: Present: CN II-XII intact, oriented X3, no focal deficits. Absent: pronater drift, facial droop, speech deficit - Skin Skin exam: Present: dry, intact Internal Medicine: Result - Labs CBC & Chem 7: 10/13/18 05:10 10/13/18 05:10 Labs: Short CBC 10/13/18 Range/Units 05:10 WBC 8.0 (4.3-11.1) K/mcL Hgb 11.2 L (11.5-15.4) g/dL Hct 34.3 L (35.3-44.9) % Plt Count 320 (140-400) K/mcL BMP 10/13/18 05:10 Sodium 136 Potassium 4.2 Chloride 103 Carbon Dioxide 28 BUN 14 Creatinine 0.80 Glucose 195 H Calcium 9.3 Liver Function 10/13/18 Range/Units 05:10 Total Bilirubin 0.4 (0.3-1.0) mg/dL AST 14 (13-39) Units/L ALT 12 (7-52) Units/L Alkaline Phosphatase 87 (34-104) Units/L Albumin 3.4 L (3.5-5.7) g/dL Consult Discharge Plan - Plan Referrals: NONE,PCP [Primary Care Provider] -
[2018-10-13 17:30] LABS: Bilirubin,Urine Negative (Negative); Blood,Urine Negative (Negative); Clarity,Urine Clear (Clear); Color,Urine Yellow (Yellow); Glucose,Urine (UA) Normal (Normal); Ketones,Urine Negative (Negative); Leukocyte Esterase,Urine Negative (Negative); Nitrite,Urine Negative (Negative); Protein,Urine Negative (Neg-Trace); Urobilinogen,Urine Normal (Normal)
[2018-10-13] MEDS ORDERED: *HR* Morphine 2 MG/ML SYRINGE IVP PRN ×2 (18:39→19:09)
[2018-10-13] MEDS: Gabapentin 400 MG CAPSULE PO SCH (20:29)
[2018-10-14] MEDS: *HR* OxyCODONE Immed Rel 5 MG TABLET PO SCH (04:25)
[2018-10-14] MEDS: tiZANidine 4 MG TABLET PO SCH ×4 (04:28→20:12)
[2018-10-14] MEDS ORDERED: *HR* OxyCODONE Immed Rel 5 MG TABLET PO PRN (06:00)
[2018-10-14] MEDS: Sennosides/Docusate Sodium TABLET PO SCH ×2 (07:51→20:13)
[2018-10-14] MEDS: Gabapentin 400 MG CAPSULE PO SCH (07:51)
[2018-10-14] MEDS: Apixaban 5 MG TABLET PO SCH ×2 (07:51→20:13)
[2018-10-14] MEDS: Insulin LISPRO 300 UNITS/3 ML VIAL SQ SCH ×4 (07:59→20:05)
[2018-10-14] MEDS: *HR* OxyCODONE Immed Rel 5 MG TABLET PO PRN ×3 (09:04→17:14)
[2018-10-14] MEDS: Insulin DETEMIR 100 UNIT/ML X5UNITS SQ SCH (09:04)
--- NOTE | 2018-10-14 12:26 | Internal Med Progress Note ---
Addendum entered and electronically signed by Umesh Mar MD 10/14/18 12:30: I have personally performed a face to face evaluation on this patient. I have r eviewed and agree with the care plan. History and Exam by me shows: Patient was crying out in pain last night even on higher dose oxycodone. For this reason, we prescribed morphine IV for breakthrough. I just learned this morning that morphine is still on a national shortage and we should use another medication. We also increased her gabapentin for this reason. However, patient became unable to speak in somewhat less responsive for a while, this morning, per therapy. She denies this ever happened but the therapist said that she was "drunk." For this reason, her gabapentin was decreased from 400 to 300 mg 4 times a day. Patient is feeling fine, right now. She denies pain at all. She has no other acute complaints. Discussed care with other providers and/or nursing. Patient has no complaint of chest discomfort, dyspnea, orthopnea, palpitations, nausea or vomiting, constipation or diarrhea, other changes in bowel habits, difficulty with urination, rash or itching, or other new complaints, except as mentioned above. Review of systems is otherwise negative. Examination: (Except as mentioned above): General: In no apparent distress. Alert and oriented 3. Nondiaphoretic. Head: Atraumatic and normocephalic. Respiratory: No use of accessory muscles. Lungs are clear throughout. Normal airflow. Cardiovascular: Regular rate and rhythm without murmur appreciated. Abdomen: Bowel sounds are normal. No hepatosplenomegaly mass or tenderness appreciated. Obese and therefore difficult to palpate deeply. Extremities: No cyanosis clubbing or edema. She is status post AKA at left. Skin: Warm and non-diaphoretic with no new lesions noted. We will work with pharmacy to see if that a lot of it is an acceptable alternative. Original Note: Date of Encounter: 10/14/18 Time of Encounter: 12:24 - Assessment and plan (1) S/P AKA (above knee amputation) Current Visit: Yes Status: Acute Assessment and plan: continue PT and OT. will follow progress. pain controlled with oxycodone and gabapentin. f/u with surgeon as scheduled. Qualifiers: Laterality: left Qualified Code(s): Z89.612 - Acquired absence of left leg above knee (2) Peripheral vascular disease Current Visit: Yes Status: Chronic Assessment and plan: s/p Left AKA (3) Hypertension Current Visit: Yes Status: Chronic Assessment and plan: controlled with current meds. monitor BP Qualifiers: Hypertension type: essential hypertension Qualified Code(s): I10 - Essential (primary) hypertension (4) CAD (coronary artery disease) Current Visit: Yes Status: Chronic Assessment and plan: stable. denies chest pain. continue current meds. Qualifiers: Coronary Disease-Associated Artery/Lesion type: unspecified vessel or lesion type [place] vs. transplanted heart: unspecified whether [place] or transplanted heart Associated angina: angina presence unspecified Qualified Code(s): I25.10 - Atherosclerotic heart disease of [place] coronary artery without angina pectoris (5) Diabetes type 2, controlled Current Visit: Yes Status: Acute Assessment and plan: continue insulin per SS. monitor FSBS. Qualifiers: Diabetes mellitus intermediate teacher insulin use: with senior care use Diabetes mellitus complication status: with unspecified complications Qualified Code(s): E11.8 - Type 2 diabetes mellitus with unspecified complications; Z79.4 - oil heaterman (current) use of insulin - Time Spent With Patient less than 15 minutes - Subjective Interval history: s/p L AKA. States she did not sleep well last night due to increased pain in left anterior upper thigh. was given morphine. this am she is more fatigue after gabapentin being increased. wakes easily and is alert and oriented. states no pain at this time. participating with therapy. denies fever, chills, NVD, SOB or chest pain. bowels moving as normal. maintaining appetite and hydration. - Constitutional Vitals: Temp Pulse Resp BP Pulse Ox 98.1 F 84 16 102/66 96 10/14/18 07:25 10/14/18 07:25 10/14/18 07:25 10/14/18 07:25 10/14/18 07:25 General appearance: Present: cooperative, A&O X 3, pleasant, no acute distress, answers questions appropriately - Head Head exam: Present: atraumatic, normocephalic - Eye Eye exam: Present: PERRL, conjuntiva pink, sclera anicteric Pupils: Present: PERRL - Neck Neck exam general surgery: Present: supple, trachea midline. Absent: lymphadenopathy - Respiratory Respiratory exam: Present: CTAB. Absent: accessory muscle use, rales, rhonchi, wheezes - Cardiovascular Cardiovascular exam: Present: RRR, +S1, +S2. Absent: diastolic murmur, gallop, rubs, systolic murmur - GI/Abdominal GI/Abdominal exam: Present: normal bowel sounds, soft, no peritoneal signs. Absent: distended, tenderness - Extremities Exam Extremities exam: Present: warm, radial pulses palpable and symmetrical. Absent: calf tenderness, cyanotic, pedal edema - Neurological Exam Neurological exam: Present: CN II-XII intact, oriented X3, no focal deficits. Absent: pronater drift, facial droop, speech deficit - Skin Skin exam: Present: dry, intact Internal Medicine: Result - Labs CBC & Chem 7: 10/13/18 05:10 10/13/18 05:10 Labs: Urine 10/13/18 Range/Units 17:10 Urine Color Yellow (Yellow) Urine Clarity Clear (Clear) Urine pH 7.0 (5.0-8.0) pH Units Ur Specific [place] 1.010 (1.010-1.025) Urine Protein Negative (Neg-Trace) mg/dL Urine Glucose (UA) Normal (Normal) mg/dL Consult Discharge Plan - Plan Referrals: NONE,PCP [Primary Care Provider] -
[2018-10-14] MEDS: Gabapentin 300 MG CAPSULE PO SCH ×3 (13:01→20:12)
[2018-10-14] MEDS ORDERED: *HR* Morphine 2 MG/ML SYRINGE IVP PRN (13:46)
[2018-10-14] MEDS: traZODone 50 MG TABLET PO PRN (20:12)
[2018-10-15] MEDS: tiZANidine 4 MG TABLET PO SCH ×4 (02:04→22:09)
[2018-10-15] MEDS: *HR* OxyCODONE Immed Rel 5 MG TABLET PO SCH (06:03)
[2018-10-15] MEDS: Gabapentin 300 MG CAPSULE PO SCH ×4 (08:25→22:11)
[2018-10-15] MEDS: Apixaban 5 MG TABLET PO SCH ×2 (08:25→22:10)
[2018-10-15] MEDS: Insulin DETEMIR 100 UNIT/ML X5UNITS SQ SCH (08:25)
[2018-10-15] MEDS: Sennosides/Docusate Sodium TABLET PO SCH ×2 (08:25→22:15)
[2018-10-15] MEDS: Insulin LISPRO 300 UNITS/3 ML VIAL SQ SCH ×4 (08:26→22:15)
--- NOTE | 2018-10-15 09:06 | Internal Med Progress Note ---
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 Diabetes mellitus complication status: with unspecified complications Qualified Code(s): E11.8 - Type 2 diabetes mellitus with unspecified complications; Z79.4 - jail (current) use of insulin (2) S/P AKA (above knee amputation) Current Visit: Yes Status: Acute Assessment and plan: Wound seems to be doing fine no fever her phantom pain seems to be controlled as well continue to monitor and adjsut her pain meds as needed Qualifiers: Laterality: left Qualified Code(s): Z89.612 - Acquired absence of left leg above knee (3) CAD (coronary artery disease) Current Visit: Yes Status: Chronic Assessment and plan: clinically stable no acute issues continue to monitor Qualifiers: Coronary Disease-Associated Artery/Lesion type: unspecified vessel or lesion type [place] vs. transplanted heart: unspecified whether [place] or transplanted heart Associated angina: angina presence unspecified Qualified Code(s): I25.10 - Atherosclerotic heart disease of [place] coronary artery without angina pectoris (4) Hypertension Current Visit: Yes Status: Chronic Assessment and plan: stable adjust meds as needed targert to keep systolic less then 120 if possible due to her DM Qualifiers: Hypertension type: essential hypertension Qualified Code(s): I10 - Essential (primary) hypertension (5) Peripheral vascular disease Current Visit: Yes Status: Chronic Assessment and plan: stable she has quit tobacco which should help as well right side pedal pulses - Subjective Interval history: Cross coverage . s/p Left AKA no acute issues getting rehab and seems to be doing well . No fever or chill no breathing issues or SOB blood sugars seems to be well controlled. and so is her pain today - Constitutional Vitals: Temp Pulse Resp BP Pulse Ox 97.9 F 72 16 135/79 98 10/15/18 07:00 10/15/18 07:00 10/15/18 07:00 10/15/18 07:00 10/15/18 07:00 General appearance: Present: cooperative, A&O X 3, pleasant, no acute distress, answers questions appropriately - Head Head exam: Present: atraumatic - Eye Eye exam: Present: PERRL. Absent: scleral icterus Pupils: Absent: PERRL - Neck Neck exam general surgery: Present: supple. Absent: tenderness, nuchal rigidity Additional comments: no carotid bruit noted - Respiratory Respiratory exam: Present: decreased breath sounds, CTAB. Absent: chest wall tenderness, rales, respiratory distress, rhonchi, stridor, wheezes, tachypnea Additional comments: decreased breath sounds both side but essentially clear - Cardiovascular Cardiovascular exam: Present: RRR, +S1, +S2 Additional comments: soft systolic mummer noted at the apex no radiation - GI/Abdominal GI/Abdominal exam: Present: normal bowel sounds, soft. Absent: distended, rebound, rigid, tenderness, no peritoneal signs - Extremities Exam Additional comments: no edema , left AKA wound not seen but I am told that her dressing has mild drainage which is old and overall clean without any evidence of infection - Neurological Exam Neurological exam: Present: CN II-XII intact, oriented X3, no focal deficits. Absent: facial droop, speech deficit Internal Medicine: Result - Labs CBC & Chem 7: 10/13/18 05:10 10/13/18 05:10 Consult Discharge Plan - Plan Referrals: NONE,PCP [Primary Care Provider] -
[2018-10-15] MEDS: *HR* OxyCODONE Immed Rel 5 MG TABLET PO PRN ×2 (10:17→18:55)
[2018-10-15] MEDS: traZODone 50 MG TABLET PO PRN (22:12)
[2018-10-16] MEDS: *HR* OxyCODONE Immed Rel 5 MG TABLET PO SCH (05:10)
[2018-10-16] MEDS: tiZANidine 4 MG TABLET PO SCH ×4 (05:11→19:48)
--- NOTE | 2018-10-16 08:24 | Internal Med Progress Note ---
Date of Encounter: 10/16/18 Time of Encounter: 08:22 - Assessment and plan (1) Diabetes type 2, controlled Current Visit: Yes Status: Chronic Assessment and plan: on Insulin at the present time her blood sugars seems to be doing well continue present regimen and adjust meds as needed BS mildly high will follow Qualifiers: Diabetes mellitus care home insulin use: with care home use Diabetes mellitus complication status: with unspecified complications Qualified Code(s): E11.8 - Type 2 diabetes mellitus with unspecified complications; Z79.4 - terminal gauger (current) use of insulin (2) S/P AKA (above knee amputation) Current Visit: Yes Status: Acute Assessment and plan: NO acute issue wound seems to be stable Qualifiers: Laterality: left Qualified Code(s): Z89.612 - Acquired absence of left leg above knee (3) CAD (coronary artery disease) Current Visit: Yes Status: Chronic Assessment and plan: clinically stable no acute issues continue to monitor continue to follow Qualifiers: Coronary Disease-Associated Artery/Lesion type: unspecified vessel or lesion type [place] vs. transplanted heart: unspecified whether [place] or transplanted heart Associated angina: angina presence unspecified Qualified Code(s): I25.10 - Atherosclerotic heart disease of [place] coronary artery without angina pectoris (4) Hypertension Current Visit: Yes Status: Chronic Assessment and plan: Stable no acute issues continue to monitor Qualifiers: Hypertension type: essential hypertension Qualified Code(s): I10 - Essential (primary) hypertension (5) Peripheral vascular disease Current Visit: Yes Status: Chronic Assessment and plan: stable no new issues - Subjective Interval history: Cross coverage . s/p Left AKA no acute issues getting rehab and seems to be doing well . No fever or chill no breathing issues or SOB blood sugars seems to be well controlled. No longer complaining of severe pain as before slept well - Constitutional Vitals: Temp Pulse Resp BP Pulse Ox 98.7 F 58 16 138/78 97 10/16/18 07:00 10/16/18 07:00 10/16/18 07:00 10/16/18 07:00 10/16/18 07:00 General appearance: Present: cooperative, A&O X 3, pleasant, no acute distress, answers questions appropriately - Head Head exam: Present: atraumatic - Eye Eye exam: Present: EOMI, PERRL Pupils: Present: PERRL - Neck Neck exam general surgery: Present: supple. Absent: tenderness, nuchal rigidity - Respiratory Respiratory exam: Present: CTAB. Absent: respiratory distress, rhonchi, stridor, wheezes, tachypnea - Cardiovascular Cardiovascular exam: Present: RRR, +S1, +S2. Absent: irregular rhythm, JVD - GI/Abdominal GI/Abdominal exam: Present: normal bowel sounds, soft. Absent: distended, guarding, rebound, rigid, splenomegaly, tenderness - Extremities Exam Extremities exam: Absent: pedal edema, tenderness Additional comments: Amputation left AKA - Neurological Exam Neurological exam: Present: CN II-XII intact, oriented X3. Absent: no focal deficits, pronater drift, facial droop Internal Medicine: Result - Labs CBC & Chem 7: 10/13/18 05:10 10/13/18 05:10 Consult Discharge Plan - Plan Referrals: NONE,PCP [Primary Care Provider] -
[2018-10-16] MEDS: Apixaban 5 MG TABLET PO SCH ×2 (08:54→19:48)
[2018-10-16] MEDS: Gabapentin 300 MG CAPSULE PO SCH ×4 (08:54→19:48)
[2018-10-16] MEDS: Insulin LISPRO 300 UNITS/3 ML VIAL SQ SCH ×4 (08:55→19:49)
[2018-10-16] MEDS: Insulin DETEMIR 100 UNIT/ML X5UNITS SQ SCH (08:56)
[2018-10-16] MEDS: Sennosides/Docusate Sodium TABLET PO SCH ×2 (08:56→19:50)
[2018-10-16] MEDS: traZODone 50 MG TABLET PO PRN (19:47)
[2018-10-16] MEDS: *HR* OxyCODONE Immed Rel 5 MG TABLET PO PRN (19:49)
[2018-10-17] MEDS: tiZANidine 4 MG TABLET PO SCH ×4 (02:00→20:16)
[2018-10-17] MEDS: *HR* OxyCODONE Immed Rel 5 MG TABLET PO SCH (05:25)
[2018-10-17] MEDS: Insulin LISPRO 300 UNITS/3 ML VIAL SQ SCH ×4 (07:56→20:21)
[2018-10-17] MEDS: Apixaban 5 MG TABLET PO SCH ×2 (08:01→20:16)
[2018-10-17] MEDS: Gabapentin 300 MG CAPSULE PO SCH ×4 (08:01→20:16)
[2018-10-17] MEDS: Sennosides/Docusate Sodium TABLET PO SCH (08:01)
[2018-10-17] MEDS: Insulin DETEMIR 100 UNIT/ML X5UNITS SQ SCH (09:29)
--- NOTE | 2018-10-17 11:08 | Internal Med Progress Note ---
Addendum entered and electronically signed by Umesh Mar MD 10/17/18 11:54: I have personally performed a face to face evaluation on this patient. I have r eviewed and agree with the care plan. History and Exam by me shows: Patient is without complaint. She is not having nearly as much pain. She is pleased with her progress. She states "my transfers are fine." This is after I told her that therapy is expressing concerns about safety of transfers and might want her to stay here for a longer time. She insists that she is going home in 2-3 days. Discussed care with other providers and/or nursing. Patient has no complaint of chest discomfort, dyspnea, orthopnea, palpitations, nausea or vomiting, constipation or diarrhea, other changes in bowel habits, difficulty with urination, rash or itching, or other new complaints, except as mentioned above. Review of systems is otherwise negative. Examination: (Except as mentioned above): General: In no apparent distress. Alert and oriented 3. Nondiaphoretic. Head: Atraumatic and normocephalic. Respiratory: No use of accessory muscles. Lungs are clear throughout. Normal airflow. Cardiovascular: Regular rate and rhythm with occasional ectopic without murmur appreciated. Abdomen: Bowel sounds are normal. No hepatosplenomegaly mass or tenderness appreciated. Obese and therefore difficult to palpate deeply. Extremities: No cyanosis clubbing or edema. Status post left AKA. Skin: Warm and non-diaphoretic with no new lesions noted. Patient is without significant need for parenteral narcotics so will discontinue morphine. Original Note: Date of Encounter: 10/17/18 Time of Encounter: 11:06 - Assessment and plan (1) S/P AKA (above knee amputation) Current Visit: Yes Status: Acute Assessment and plan: continue PT and OT. will follow progress. pain controlled with oxycodone and gabapentin. f/u with surgeon as scheduled. Qualifiers: Laterality: left Qualified Code(s): Z89.612 - Acquired absence of left leg above knee (2) Peripheral vascular disease Current Visit: Yes Status: Chronic Assessment and plan: s/p Left AKA (3) Hypertension Current Visit: Yes Status: Chronic Assessment and plan: controlled with current meds. monitor BP Qualifiers: Hypertension type: essential hypertension Qualified Code(s): I10 - Essential (primary) hypertension (4) CAD (coronary artery disease) Current Visit: Yes Status: Chronic Assessment and plan: stable. denies chest pain. continue current meds. Qualifiers: Coronary Disease-Associated Artery/Lesion type: unspecified vessel or lesion type [place] vs. transplanted heart: unspecified whether [place] or transplanted heart Associated angina: angina presence unspecified Qualified Code(s): I25.10 - Atherosclerotic heart disease of [place] coronary artery without angina pectoris (5) Diabetes type 2, controlled Current Visit: Yes Status: Chronic Assessment and plan: continue insulin per SS. monitor FSBS. Qualifiers: Diabetes mellitus usp insulin use: with terminal superintendent use Diabetes mellitus complication status: with unspecified complications Qualified Code(s): E11.8 - Type 2 diabetes mellitus with unspecified complications; Z79.4 - [facility] (current) use of insulin - Time Spent With Patient 25 - 35 minutes - Subjective Interval history: s/p L AKA. Participating well with therapy. States slept well last night. States current pain medication is controlling pain. Working on transfers with new wheelchair. Had home safety eval on . - Constitutional Vitals: Temp Pulse Resp BP Pulse Ox 98.5 F 65 15 129/74 95 10/17/18 07:33 10/17/18 07:33 10/17/18 07:33 10/17/18 07:33 10/17/18 07:33 General appearance: Present: cooperative, A&O X 3, pleasant, no acute distress, answers questions appropriately - Head Head exam: Present: atraumatic, normocephalic - Eye Eye exam: Present: PERRL, conjuntiva pink, sclera anicteric Pupils: Present: PERRL - Neck Neck exam general surgery: Present: supple, trachea midline. Absent: lymphadenopathy - Respiratory Respiratory exam: Present: CTAB. Absent: accessory muscle use, rales, rhonchi, wheezes - Cardiovascular Cardiovascular exam: Present: RRR, +S1, +S2. Absent: diastolic murmur, gallop, rubs, systolic murmur - GI/Abdominal GI/Abdominal exam: Present: normal bowel sounds, soft, no peritoneal signs. Absent: distended, tenderness - Extremities Exam Extremities exam: Present: warm, radial pulses palpable and symmetrical. Absent: calf tenderness, cyanotic, pedal edema Additional comments: Left AKA - Neurological Exam Neurological exam: Present: CN II-XII intact, oriented X3, no focal deficits. Absent: pronater drift, facial droop, speech deficit - Skin Skin exam: Present: dry, intact Internal Medicine: Result - Labs CBC & Chem 7: 10/13/18 05:10 10/13/18 05:10 Consult Discharge Plan - Plan Referrals: NONE,PCP [Primary Care Provider] -
[2018-10-17] MEDS: *HR* OxyCODONE Immed Rel 5 MG TABLET PO PRN ×2 (13:53→19:00)
[2018-10-17] MEDS: traZODone 50 MG TABLET PO PRN (20:16)
[2018-10-18] MEDS: Sennosides/Docusate Sodium TABLET PO SCH ×3 (02:29→20:20)
[2018-10-18] MEDS: tiZANidine 4 MG TABLET PO SCH ×4 (02:30→20:19)
[2018-10-18] MEDS: *HR* OxyCODONE Immed Rel 5 MG TABLET PO SCH (06:44)
[2018-10-18] MEDS: Insulin LISPRO 300 UNITS/3 ML VIAL SQ SCH ×4 (08:23→20:18)
[2018-10-18] MEDS: Gabapentin 300 MG CAPSULE PO SCH ×4 (08:40→20:19)
[2018-10-18] MEDS: Apixaban 5 MG TABLET PO SCH ×2 (08:40→20:19)
[2018-10-18] MEDS: Insulin DETEMIR 100 UNIT/ML X5UNITS SQ SCH (08:44)
--- NOTE | 2018-10-18 11:20 | Internal Med Progress Note ---
Addendum entered and electronically signed by Umesh Mar MD 10/19/18 12:47: I have personally performed a face to face evaluation on this patient. I have r eviewed and agree with the care plan. History and Exam by me shows: The patient was evaluated by me yesterday but the note was not complete. This documentation is being completed today for that reason. Patient states that she is leaving in a day or 2. She has no complaints. Pain has become increasingly better and she has now had minimal. Discussed care with other providers and/or nursing. Patient has no complaint of chest discomfort, dyspnea, orthopnea, palpitations, nausea or vomiting, constipation or diarrhea, other changes in bowel habits, difficulty with urination, rash or itching, or other new complaints, except as mentioned above. Review of systems is otherwise negative. Examination: (Except as mentioned above): General: In no apparent distress. Alert and oriented 3. Nondiaphoretic. Head: Atraumatic and normocephalic. Respiratory: No use of accessory muscles. Lungs are clear throughout. Normal airflow. Cardiovascular: Regular rate and rhythm without murmur appreciated. Abdomen: Bowel sounds are normal. No hepatosplenomegaly mass or tenderness appreciated. Obese and therefore difficult to palpate deeply. Patient is examined upright in chair and this also limits exam. Extremities: No cyanosis clubbing or edema. Status post left AKA. Skin: Warm and non-diaphoretic with no new lesions noted. Original Note: Date of Encounter: 10/18/18 Time of Encounter: 11:16 - Assessment and plan (1) S/P AKA (above knee amputation) Current Visit: Yes Status: Acute Assessment and plan: continue PT and OT. will follow progress. pain controlled with oxycodone and gabapentin. f/u with surgeon as scheduled. Qualifiers: Laterality: left Qualified Code(s): Z89.612 - Acquired absence of left leg above knee (2) Peripheral vascular disease Current Visit: Yes Status: Chronic Assessment and plan: s/p Left AKA (3) Hypertension Current Visit: Yes Status: Chronic Assessment and plan: controlled with current meds. monitor BP Qualifiers: Hypertension type: essential hypertension Qualified Code(s): I10 - Essential (primary) hypertension (4) CAD (coronary artery disease) Current Visit: Yes Status: Chronic Assessment and plan: stable. denies chest pain. continue current meds. Qualifiers: Coronary Disease-Associated Artery/Lesion type: unspecified vessel or lesion type [place] vs. transplanted heart: unspecified whether [place] or transplanted heart Associated angina: angina presence unspecified Qualified Code(s): I25.10 - Atherosclerotic heart disease of [place] coronary artery without angina pectoris (5) Diabetes type 2, controlled Current Visit: Yes Status: Chronic Assessment and plan: continue insulin per SS. monitor FSBS. Qualifiers: Diabetes mellitus [facility] insulin use: with regional intermodal truck driver use Diabetes mellitus complication status: with unspecified complications Qualified Code(s): E11.8 - Type 2 diabetes mellitus with unspecified complications; Z79.4 - terminal clerk (current) use of insulin - Time Spent With Patient less than 15 minutes - Subjective Interval history: s/p L AKA. Participating well with therapy. States slept well last night. States current pain medication is controlling pain. Working on transfers with new wheelchair. Scheduled to discharge home tomorrow. - Constitutional Vitals: Temp Pulse Resp BP Pulse Ox 98.0 F 68 16 161/73 94 10/18/18 06:00 10/18/18 06:00 10/18/18 06:00 10/18/18 06:00 10/18/18 06:00 General appearance: Present: cooperative, A&O X 3, pleasant, no acute distress, answers questions appropriately - Head Head exam: Present: atraumatic, normocephalic - Eye Eye exam: Present: PERRL, conjuntiva pink, sclera anicteric Pupils: Present: PERRL - Neck Neck exam general surgery: Present: supple, trachea midline. Absent: lymphadenopathy - Respiratory Respiratory exam: Present: CTAB. Absent: accessory muscle use, rales, rhonchi, wheezes - Cardiovascular Cardiovascular exam: Present: RRR, +S1, +S2. Absent: diastolic murmur, gallop, rubs, systolic murmur - GI/Abdominal GI/Abdominal exam: Present: normal bowel sounds, soft, no peritoneal signs. Absent: distended, tenderness - Extremities Exam Extremities exam: Present: warm, radial pulses palpable and symmetrical. Absent: calf tenderness, cyanotic, pedal edema Additional comments: Left AKA - Neurological Exam Neurological exam: Present: CN II-XII intact, oriented X3, no focal deficits. Absent: pronater drift, facial droop, speech deficit - Skin Skin exam: Present: dry, intact Internal Medicine: Result - Labs CBC & Chem 7: 10/13/18 05:10 10/13/18 05:10 Consult Discharge Plan - Plan Referrals: NONE,PCP [Primary Care Provider] -
[2018-10-18] MEDS: *HR* OxyCODONE Immed Rel 5 MG TABLET PO PRN ×2 (16:21→20:19)
[2018-10-18] MEDS: traZODone 50 MG TABLET PO PRN (20:20)
[2018-10-19] MEDS: tiZANidine 4 MG TABLET PO SCH ×3 (02:00→13:29)
[2018-10-19] MEDS ORDERED: *HR* OxyCODONE Immed Rel 5 MG TABLET PO SCH (06:00)
[2018-10-19 07:51] VITALS: BP 123/70
[2018-10-19] MEDS: Insulin LISPRO 300 UNITS/3 ML VIAL SQ SCH ×2 (08:26→12:23)
[2018-10-19] MEDS: Gabapentin 300 MG CAPSULE PO SCH ×2 (10:06→12:45)
[2018-10-19] MEDS: Apixaban 5 MG TABLET PO SCH (10:06)
[2018-10-19] MEDS: Sennosides/Docusate Sodium TABLET PO SCH (10:06)
[2018-10-19] MEDS: Insulin DETEMIR 100 UNIT/ML X5UNITS SQ SCH (10:08)
--- NOTE | 2018-10-19 12:07 | Physician Discharge Referral ---
Addendum entered and electronically signed by Umesh Mar MD 10/19/18 14:57: Original Note: Home Health/Hosp Referral Info Provider in Charge Post Discharge: PCP - Diagnosis (1) S/P AKA (above knee amputation) Priority: Primary Status: Acute (2) Peripheral vascular disease Priority: Secondary Status: Chronic (3) Hypertension Priority: Secondary Status: Chronic (4) CAD (coronary artery disease) Priority: Secondary Status: Chronic (5) Diabetes type 2, controlled Priority: Secondary Status: Chronic - Respiratory Orders Smoking Cessation: Smoking cessation has been advised. For more information, call the [place] Tobacco Quit Line at 9-781-ELMN-NOW. - Diet/Nutrition Diet/Nutrition Orders: No Concentrated Sweets - Activity Activity Orders: Chair - Services Needed Following services are medically necessary services: Nursing, Home Health Aide, Physical Therapy, Occupational Therapy, Med Social Work - Transfer Medications Home Medications: Atorvastatin [Lipitor] 80 mg PO HS 03/07/18 [History] BuPROPion [Wellbutrin] 100 mg PO BID 03/07/18 [History] Lisinopril [Zestril] 10 mg PO DAILY 03/07/18 [History] PARoxetine HCl [Paroxetine HCl] 40 mg PO HS 03/07/18 [History] Trazodone HCl 100 mg PO HS PRN 03/07/18 [History] Clopidogrel Bisulfate [Plavix] 75 mg PO DAILY 07/14/18 [History] Apixaban [Eliquis] 5 mg PO BID 10/06/18 [History] Dapagliflozin Propanediol [Farxiga] 10 mg PO DAILY 10/06/18 [History] Gabapentin [Neurontin] 300 mg PO TID 10/06/18 [History] Insulin Glargine [Lantus] 5 units SQ QAM 10/06/18 [History] Ondansetron ODT [Zofran ODT] 4 mg SL Q6H PRN 10/06/18 [History] Allergies/Adverse Reactions: Allergy/AdvReac Type Severity Reaction Status Date / Time Penicillins [PCN] Allergy Anaphylaxis Verified 03/07/18 04:50 Certification: Further, I certify that my clinical findings support that this patient is homebound (i.e. absences from home require considerable and taxing effort and are for medical reasons or restorationism services or infrequently or short duration when for other reasons) because: Homebound Reason: Patient requires assistance of a person or device to safely leave home, Post-surgery restriction and or conditions limit ability to leave home, Leaving home requires considerable and taxing effort due to condition Attestation: My signature below is to certify that this patient is under my care and that I, or nurse practitioner, or a physician's assistant auditor working with me, has a face-to -face encounter with this patient.
--- NOTE | 2018-10-19 12:46 | Discharge Summary ---
Addendum entered and electronically signed by Umesh Mar MD 10/19/18 14:56: I have personally performed a face to face evaluation on this patient. I have r eviewed and agree with the care plan. History and Exam by me shows: Patient denies problems. She is pleased to be leaving. She has no acute issues. She states that bowel and bladder functioning well. Discussed care with other providers and/or nursing. Patient has no complaint of chest discomfort, dyspnea, orthopnea, palpitations, nausea or vomiting, constipation or diarrhea, other changes in bowel habits, difficulty with urination, rash or itching, or other new complaints, except as mentioned above. Review of systems is otherwise negative. Examination: (Except as mentioned above): General: In no apparent distress. Alert and oriented 3. Nondiaphoretic. Head: Atraumatic and normocephalic. Respiratory: No use of accessory muscles. Lungs are clear throughout. Normal airflow. Cardiovascular: Regular rate and rhythm without murmur appreciated. Abdomen: Bowel sounds are normal. No hepatosplenomegaly mass or tenderness appreciated. Obese and therefore difficult to palpate deeply. Patient is examined upright in chair and this also limits exam. Extremities: No cyanosis clubbing or edema. Status post left AKA A with dressing in place. Skin: Warm and non-diaphoretic with no new lesions noted. Original Note: Date of Encounter: 10/19/18 Time of Encounter: 12:44 - Discharge Diagnosis (1) S/P AKA (above knee amputation) Priority: Primary Status: Acute Comments: Continue home health PT and OT. Follow up with surgeon as scheduled. Pain controlled with current medication. Prescriptions provided for one week. Qualifiers: Laterality: left Qualified Code(s): Z89.612 - Acquired absence of left leg above knee (2) Peripheral vascular disease Priority: Secondary Status: Chronic Comments: Follow up with PCP as scheduled. (3) Hypertension Priority: Secondary Status: Chronic Comments: Controlled with current medication. Monitor blood pressure. Qualifiers: Hypertension type: essential hypertension Qualified Code(s): I10 - Essential (primary) hypertension (4) CAD (coronary artery disease) Priority: Secondary Status: Chronic Comments: Denies chest pain. Continue current medication. Follow up with PCP. Qualifiers: Coronary Disease-Associated Artery/Lesion type: unspecified vessel or lesion type [place] vs. transplanted heart: unspecified whether [place] or transplanted heart Associated angina: angina presence unspecified Qualified Code(s): I25.10 - Atherosclerotic heart disease of [place] coronary artery without angina pectoris (5) Diabetes type 2, controlled Priority: Secondary Status: Chronic Comments: Controlled with current medication. Continue to monitor fingerstick blood sugars. Follow up with PCP. 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 Abdi is a 67 year old female discharging to home status post left AKA. Patient able to propel self in wheelchair and transfer safely. Will go home with home health PT, OT, nurse and aid. Social work consult also put in for home. Patient states pain is controlled with oxycodone and gabapentin. Maintaining appetite and hydration. Bowels moving as normal. Instructed to follow up with PCP within one week and surgeon as scheduled. Denies fever, chills, nausea vomiting or diarrhea. Denies shortness of breath or chest pain. Discharge discussed with: patient, nurse, social work - Time Spent with Patient Total time spent providing and/or coordinating discharge services: Time spent: Less than 30 minutes - Discharge Medications Prescriptions: No Action PARoxetine HCl [Paroxetine HCl] 40 mg PO HS Lisinopril [Zestril] 10 mg PO DAILY BuPROPion [Wellbutrin] 100 mg PO BID Atorvastatin [Lipitor] 80 mg PO HS Trazodone HCl 100 mg PO HS PRN PRN Reason: Sleep Clopidogrel Bisulfate [Plavix] 75 mg PO DAILY Dapagliflozin Propanediol [Farxiga] 10 mg PO DAILY Ondansetron ODT [Zofran ODT] 4 mg SL Q6H PRN PRN Reason: Nausea Gabapentin [Neurontin] 300 mg PO TID Apixaban [Eliquis] 5 mg PO BID Insulin Glargine [Lantus] 5 units SQ QAM Home Medications: Atorvastatin [Lipitor] 80 mg PO HS 03/07/18 [History] BuPROPion [Wellbutrin] 100 mg PO BID 03/07/18 [History] Lisinopril [Zestril] 10 mg PO DAILY 03/07/18 [History] PARoxetine HCl [Paroxetine HCl] 40 mg PO HS 03/07/18 [History] Trazodone HCl 100 mg PO HS PRN 03/07/18 [History] Clopidogrel Bisulfate [Plavix] 75 mg PO DAILY 07/14/18 [History] Apixaban [Eliquis] 5 mg PO BID 10/06/18 [History] Dapagliflozin Propanediol [Farxiga] 10 mg PO DAILY 10/06/18 [History] Insulin Glargine [Lantus] 5 units SQ QAM 10/06/18 [History] Ondansetron ODT [Zofran ODT] 4 mg SL Q6H PRN 10/06/18 [History] Acetaminophen [Tylenol] 650 mg PO Q4HR PRN tablet 10/19/18 [Rx] Gabapentin [Neurontin] 300 mg PO QID 7 Days #28 capsule 10/19/18 [Rx] Insulin LISPRO [HumaLOG] 0 units SQ HS vial 10/19/18 [Rx] Insulin LISPRO [HumaLOG] 0 units SQ TIDAC vial 10/19/18 [Rx] Lidocaine Patch [Lidoderm 5% patch] 1 each TP DAILY #7 adh..patch 10/19/18 [Rx] OxyCODONE Immed Rel [Roxicodone 5 MG] 5 mg PO Q6HR PRN 7 Days #28 tablet 10/19/18 [Rx] Sennosides/Docusate Sodium [Senna Plus] 1 each PO BID tablet 10/19/18 [Rx] cloNIDine HCl [CloNIDine HCl] 0.1 mg PO Q6HR PRN tablet 10/19/18 [Rx] Allergies/Adverse Reactions: Allergy/AdvReac Type Severity Reaction Status Date / Time Penicillins [PCN] Allergy Anaphylaxis Verified 03/07/18 04:50 Date of admission: 10/06/18 17:31 Primary care physician: PCP NONE Consults: 10/06/18 18:04 Consult to Physical Medicine/Rehab [CONS] Routine Reason for Consult: s/p L AKA Call Completed: Yes 10/06/18 18:05 Consult to Occupational Therapy [CONS] Routine Comment: Evaluate, develop and implement POC Reason for Consult: s/p L AKA Does patient have active BEDREST order?: No Is patient medically & hemodynamically stable?: Yes Consult to Physical Therapy [CONS] Routine Comment: Evaluate, develop and implement POC Reason for Consult: s/p Left AKA Does patient have active BEDREST order?: No Is patient medically & hemodynamically stable?: Yes Consult to Juke Box Mechanic [CONS] Routine Reason for SW Consult: discharge planning 10/06/18 18:06 Consult to Psychology [CONS] Routine Consulting Provider: Esperanza Goldberg Reason for Consult: Possible depression; adjustment disorder Call Completed: No Consult to Recreational Therapy [CONS] Routine Comment: Discharging clinician: Umesh Mar Anticipated date of discharge: 10/19/18 - Constitutional Vitals: Temp Pulse Resp BP Pulse Ox 97.6 F 62 14 123/70 97 10/19/18 07:10 10/19/18 07:10 10/19/18 07:10 10/19/18 07:10 10/19/18 07:10 General appearance: Present: cooperative, A&O X 3, pleasant, no acute distress, answers questions appropriately - Head Head exam: Present: atraumatic, normocephalic - Eye Eye exam: Present: PERRL, conjuntiva pink, sclera anicteric Pupils: Present: PERRL - Neck Neck exam general surgery: Present: supple, trachea midline. Absent: lymphadenopathy - Respiratory Respiratory exam: Present: CTAB. Absent: accessory muscle use, rales, rhonchi, wheezes - Cardiovascular Cardiovascular exam: Present: RRR, +S1, +S2. Absent: diastolic murmur, gallop, rubs, systolic murmur - GI/Abdominal GI/Abdominal exam: Present: normal bowel sounds, soft, no peritoneal signs. Absent: distended, tenderness - Extremities Exam Extremities exam: Present: warm, radial pulses palpable and symmetrical. Absent: calf tenderness, cyanotic, pedal edema - [place] Comments: Left AKA dressing dry and intact. No redness around area. - Neurological Exam Neurological exam: Present: CN II-XII intact, oriented X3, no focal deficits. Absent: pronater drift, facial droop, speech deficit - Skin Skin exam: Present: dry, intact - Patient Status Disposition: Home Health Service Condition: Good Functional capacity at discharge: wheelchair bound Overall status at discharge: patient is progressing back to baseline - Discharge Instructions Follow Up With: NONE,PCP [Primary Care Provider] - - Diet and Activity Activity: as per physical therapy, increase activity as tolerated Diet: diabetic diet
[2018-10-19] MEDS: *HR* OxyCODONE Immed Rel 5 MG TABLET PO PRN (13:28)
--- NOTE | 2018-10-19 14:31 | Rehab Psychology Progress Note ---
Date of Encounter: 10/19/18 Time of Encounter: 09:00 Subjective - Patient Report Patient Report: Ready to go home. Discussed home visit and needed accommodations. Stated pain controlled. Phantom pain 1X/day. Objective - WHODAS Functional Impairment Concentration, Problem-solving, Communication: Mild Social Functioning: Mild - Mental Status Mental Status Changes: Ox2 - difficulty with year and date - knew month. Some confusion as to when she is being discharged and preservation on this topic throughout the morning. Assessment and Plan - Diagnosis (1) Adjustment disorder with depressed mood - Response to Treatment Response to Treatment: No Change - Prognosis Prognosis: Good - Treatment Plan Changes in Treatment Plan Goals: Discharged and ready for home. Procedures - Intervention Interventions: Cognitive/Behavioral Therapy - Modality Modality: Psychotherapy 30 minutes - Participants Therapy Participant: Patient - Session Time Session Start Time: 09:00 Session Stop Time: 09:30
== END 2018-10-19 15:30 | disposition home health service (06) | DRG 561 ==
LOC: INPGRE 10-06 17:31